=== PATIENT | male | born 1945 | race Two or more races ===

== ENCOUNTER 2018-06-09 07:26 | Outpatient (CLI) | payer OTHER | END 2018-06-09 07:28 | disposition home or self-care (01) | LOC: SONOGRAMA 07:26 | DX: E04.1 Nontoxic single thyroid nodule (principal) ==

== ENCOUNTER 2019-11-09 08:21 | Outpatient (CLI) | payer OTHER | END 2019-11-09 08:29 | disposition home or self-care (01) | LOC: SONOGRAMA 08:21 | PROVIDERS: ATTEND Pathology Anatomic Pathology | DX: C73 Malignant neoplasm of thyroid gland (principal) ==